=== PATIENT | male | born 1945 | race Two or more races ===

== ENCOUNTER 2023-06-17 22:42 | Inpatient (IN) | payer MEDICARE, OTHER ==
[~2023-06-17] VITALS: Ht 165.1 cm; Wt 73.5 kg
[2023-06-18 00:19] LABS: BASOPHILS % (AUTO) 0.4 % (0.0-2.0); EOSINOPHILS # (AUTO) 0.2 K/uL (0.0-0.7); HEMATOCRIT 45 % (39-51); HEMOGLOBIN 14.9 g/dL (13.5-17.5); LYMPHOCYTES # (AUTO) 2.1 K/uL (0.8-4.8); LYMPHOCYTES % (AUTO) 24.9 % (20.0-44.0); MEAN CORPUSCULAR HEMOGLOBIN 32 PG (26.0-33.0); MEAN CORPUSCULAR HGB CONC 33 g/dl (31.0-36.0); MEAN CORPUSCULAR VOLUME 95 fL (80-96); MONOCYTES # (AUTO) 0.8 K/uL (0.1-1.30); MONOCYTES % (AUTO) 9.8 % (2.0-12.0); NEUTROPHILS # (AUTO) 5.1 K/uL (1.8-8.9); NEUTROPHILS % (AUTO) 61.9 % (43.0-81.0); PLATELET COUNT (AUTO) 191 K/uL (150-450); RED BLOOD CELL COUNT(AUTO) 4.74 MIL/uL (4.5-6.0); RED CELL DISTRIBUTION WIDTH 13.8 % (11.5-15.0); WHITE BLOOD COUNT (AUTO) 8.3 K/uL (4.3-11.0)
[2023-06-18 00:32] LABS: ALANINE AMINOTRANSFERASE 21 U/L (12-78); ALBUMIN 3.8 g/dL (3.4-5.0); ALKALINE PHOSPHATASE 79 U/L (46-116); ASPARTATE AMINOTRANSFERASE 23 U/L (15-37); BILIRUBIN,DIRECT 0.1 mg/dL (0.0-0.2); BILIRUBIN,TOTAL 0.3 mg/dL (0.2-1.0); CALCIUM, SERUM 9.6 mg/dL (8.5-10.1); CARBON DIOXIDE 26 mmol/L (21-32); CHLORIDE 104 mmol/L (98-107); CREATININE 1.2 mg/dL (0.6-1.3); GLUCOSE 126 mg/dL (74-106); POTASSIUM 4.2 mmol/L (3.5-5.1); SODIUM SERUM 139 mmol/L (136-145); TOTAL PROTEIN, SERUM 7.2 g/dL (6.4-8.2); UREA NITROGEN, BLOOD 27 mg/dL (7-18)
[2023-06-18 00:35] LABS: ACETAMINOPHEN <10 ug/ml (10-30); ALCOHOL, BLOOD < 3 mg/dL (0-10); SALICYLATE 2.7 mg/dL (2.8-20.0)
[2023-06-18 01:17] LABS: APPEARANCE,URINE CLEAR (CLEAR); BILIRUBIN,URINE NEGATIVE (NEGATIVE); BLOOD, URINE NEGATIVE Ery/uL (NEGATIVE); COLOR,URINE YELLOW (YELLOW); KETONES,URINE NEGATIVE (NEGATIVE); LEUKOCYTE ESTERASE ,URINE NEGATIVE (NEGATIVE); NITRITE, URINE NEGATIVE (NEGATIVE); PROTEIN,URINE 1+ mg/dl (NEGATIVE); UGLUCOSE 3+ mg/dL (NEGATIVE); UROBILINOGEN,URINE 0.2 EU/dL (0.2)
[2023-06-18 01:26] LABS: AMPHETAMINE, URINE NEGATIVE (NEGATIVE); BARBITURATE, URINE NEGATIVE (NEGATIVE); BENZODIAZEPINE, URINE NEGATIVE (NEGATIVE); CANNABINOID, URINE NEGATIVE (NEGATIVE); COCCAINE, URINE NEGATIVE (NEGATIVE); OPIATE, URINE NEGATIVE (NEGATIVE); PHENCYCLIDINE SCREEN,URINE NEGATIVE (NEGATIVE)
[2023-06-18] MEDS ORDERED: ACETAMINOPHEN 325 MG TABLET PO PRN ×2 (04:30→14:30)
[2023-06-18] MEDS ORDERED: MAGNESIUM HYDROXIDE 30 ML UDC PO PRN (04:30)
[2023-06-18] MEDS ORDERED: LORAZEPAM 0.5 MG TABLET PO PRN ×2 (04:30→10:30)
[2023-06-18] MEDS ORDERED: ZOLPIDEM TARTRATE 5 MG TABLET PO PRN (04:30)
[2023-06-18] MEDS ORDERED: MAG HYDROX/AL HYDROX/SIMETH 30 ML UDC PO PRN (04:30)
[2023-06-18] MEDS ORDERED: ARIP2TAB3 PO (04:46)
[2023-06-18] MEDS ORDERED: AMLO-213 PO (04:47)
[2023-06-18] MEDS ORDERED: ATOR20TA PO (04:48)
[2023-06-18] MEDS ORDERED: B CO1TAB6 PO (04:49)
[2023-06-18] MEDS ORDERED: CHOL400T11 PO (04:52)
[2023-06-18] MEDS ORDERED: UBID100C13 PO (04:53)
[2023-06-18] MEDS ORDERED: CARV6.252 PO (04:56)
[2023-06-18] MEDS ORDERED: APIX5TAB PO (04:57)
[2023-06-18] MEDS ORDERED: DAPA10TA PO (04:58)
[2023-06-18] MEDS ORDERED: INSU100V28 SQ (04:59)
[2023-06-18] MEDS ORDERED: BLOOD SUGAR DIAGNOSTIC 1 EACH STRIP IN ONE (05:00)
[2023-06-18] MEDS ORDERED: INSU100I26 SQ (05:01)
[2023-06-18] MEDS ORDERED: FURO-145 PO (05:02)
[2023-06-18] MEDS ORDERED: ENTE0.5T11 PO (05:03)
[2023-06-18] MEDS ORDERED: MELA3TAB41 PO (05:09)
[2023-06-18] MEDS ORDERED: METF-440 PO (05:10)
[2023-06-18] MEDS ORDERED: POTA-10 PO (05:12)
[2023-06-18 05:14] VITALS: BP 119/69; TEMP 98; O2SAT 98
[2023-06-18] MEDS ORDERED: TRAZ-252 PO (05:14)
[2023-06-18] MEDS ORDERED: Z GUARD REMEDY 4 OZ OINT TP PRN (06:00)
[2023-06-18] MEDS ORDERED: DEXTROSE 50%-WATER 50 ML DISP.SYRIN IV PRN ×2 (06:00→14:30)
[2023-06-18] MEDS ORDERED: PETR113O TP (07:38)
[2023-06-18] MEDS ORDERED: ACET-868 PO (07:38)
[2023-06-18] MEDS ORDERED: CHOL100043 PO (07:38)
[2023-06-18] MEDS: BLOOD SUGAR DIAGNOSTIC 1 EACH STRIP IN SCH ×4 (07:43→21:53)
[2023-06-18 08:00] VITALS: BP 137/67; TEMP 97.9; O2SAT 99
[2023-06-18] MEDS: Z GUARD REMEDY 4 OZ OINT TP SCH (10:05)
[2023-06-18] MEDS ORDERED: INSULIN REGULAR, HUMAN 100 UNIT/ML 3 ML VIAL SQ PRN (14:30)
[2023-06-18 16:00] VITALS: BP 147/69; TEMP 98.2; O2SAT 98
[2023-06-18] MEDS: METFORMIN 500 MG TABLET PO SCH (16:19)
[2023-06-18] MEDS: APIXABAN 5 MG TABLET PO SCH (16:19)
[2023-06-18] MEDS: CARVEDILOL 6.25 MG TABLET PO SCH (16:20)
[2023-06-18] MEDS ORDERED: INSULIN REGULAR, HUMAN 100 UNIT/ML 3 ML VIAL SQ SCH (17:30)
[2023-06-18 20:00] VITALS: BP 130/70; TEMP 98.2; O2SAT 98
[2023-06-18] MEDS: ATORVASTATIN 10 MG TABLET PO SCH (21:23)
[2023-06-18] MEDS: AMLODIPINE BESYLATE 10 MG TABLET PO SCH (21:24)
[2023-06-18] MEDS: QUETIAPINE FUMARATE 25 MG TABLET PO SCH (21:25)
[2023-06-18] MEDS: INSULIN GLARGINE, 100 UNIT/ML CARTRIDGE SQ SCH (21:56)
[2023-06-18 22:53] VITALS: BP 130/70; TEMP 98.2
[2023-06-19 06:45] LABS: BASOPHILS % (AUTO) 0.4 % (0.0-2.0); EOSINOPHILS # (AUTO) 0.2 K/uL (0.0-0.7); EOSINOPHILS % (AUTO) 3.2 % (0.0-6.0); HEMATOCRIT 44 % (39-51); HEMOGLOBIN 14.8 g/dL (13.5-17.5); LYMPHOCYTES % (AUTO) 26.7 % (20.0-44.0); MEAN CORPUSCULAR HEMOGLOBIN 32 PG (26.0-33.0); MEAN CORPUSCULAR HGB CONC 33 g/dl (31.0-36.0); MEAN CORPUSCULAR VOLUME 94 fL (80-96); MONOCYTES # (AUTO) 0.7 K/uL (0.1-1.30); MONOCYTES % (AUTO) 9.9 % (2.0-12.0); NEUTROPHILS # (AUTO) 4.5 K/uL (1.8-8.9); NEUTROPHILS % (AUTO) 59.8 % (43.0-81.0); PLATELET COUNT (AUTO) 202 K/uL (150-450); RED CELL DISTRIBUTION WIDTH 14.2 % (11.5-15.0); WHITE BLOOD COUNT (AUTO) 7.5 K/uL (4.3-11.0)
[2023-06-19] MEDS: BLOOD SUGAR DIAGNOSTIC 1 EACH STRIP IN SCH ×4 (06:57→21:21)
[2023-06-19 07:24] LABS: CALCIUM, SERUM 9.2 mg/dL (8.5-10.1); POTASSIUM 4.2 mmol/L (3.5-5.1)
[2023-06-19 08:00] VITALS: BP 126/56; TEMP 97.7; O2SAT 99
[2023-06-19] MEDS: METFORMIN 500 MG TABLET PO SCH ×2 (08:17→16:05)
[2023-06-19] MEDS: CARVEDILOL 6.25 MG TABLET PO SCH ×2 (08:17→16:07)
[2023-06-19] MEDS: APIXABAN 5 MG TABLET PO SCH ×2 (08:18→16:06)
[2023-06-19] MEDS: DAPAGLIFLOZIN PROPANEDIOL 5 MG TABLET PO SCH (08:19)
[2023-06-19] MEDS: Z GUARD REMEDY 4 OZ OINT TP SCH (08:19)
[2023-06-19] MEDS: FUROSEMIDE 20 MG TABLET PO SCH (08:22)
[2023-06-19] MEDS: ESCITALOPRAM OXALATE (10 MG) 10 MG TABLET PO SCH (08:22)
[2023-06-19] MEDS: VITAMIN B COMP W-C 1 TAB TABLET PO SCH (08:22)
[2023-06-19 16:03] VITALS: BP 123/69; TEMP 97.6; O2SAT 100
[2023-06-19] MEDS: QUETIAPINE FUMARATE 25 MG TABLET PO SCH (21:20)
[2023-06-19] MEDS: ATORVASTATIN 10 MG TABLET PO SCH (21:21)
[2023-06-19] MEDS: AMLODIPINE BESYLATE 10 MG TABLET PO SCH (21:21)
[2023-06-19] MEDS: INSULIN GLARGINE, 100 UNIT/ML CARTRIDGE SQ SCH (21:25)
[2023-06-20] MEDS: BLOOD SUGAR DIAGNOSTIC 1 EACH STRIP IN SCH ×4 (08:57→21:45)
[2023-06-20] MEDS: Z GUARD REMEDY 4 OZ OINT TP SCH (08:57)
[2023-06-20] MEDS: CARVEDILOL 6.25 MG TABLET PO SCH ×2 (08:58→16:33)
[2023-06-20] MEDS: ESCITALOPRAM OXALATE (10 MG) 10 MG TABLET PO SCH (09:01)
[2023-06-20] MEDS: VITAMIN B COMP W-C 1 TAB TABLET PO SCH (09:01)
[2023-06-20] MEDS: METFORMIN 500 MG TABLET PO SCH ×2 (09:01→16:33)
[2023-06-20] MEDS: FUROSEMIDE 20 MG TABLET PO SCH (09:02)
[2023-06-20] MEDS: DAPAGLIFLOZIN PROPANEDIOL 5 MG TABLET PO SCH (09:03)
[2023-06-20] MEDS: APIXABAN 5 MG TABLET PO SCH ×2 (09:03→16:33)
[2023-06-20 15:55] VITALS: BP 142/69; TEMP 98.2; O2SAT 98
[2023-06-20 20:00] VITALS: BP 135/84; TEMP 97.3
[2023-06-20] MEDS: QUETIAPINE FUMARATE 25 MG TABLET PO SCH (21:39)
[2023-06-20] MEDS: ATORVASTATIN 10 MG TABLET PO SCH (21:39)
[2023-06-20] MEDS: AMLODIPINE BESYLATE 10 MG TABLET PO SCH (21:47)
[2023-06-20] MEDS: INSULIN GLARGINE, 100 UNIT/ML CARTRIDGE SQ SCH (21:53)
[2023-06-21] MEDS: BLOOD SUGAR DIAGNOSTIC 1 EACH STRIP IN SCH (07:07)
[2023-06-21 08:00] VITALS: BP 153/68; TEMP 97.7; O2SAT 96
[2023-06-21 08:06] VITALS: BP 153/68; TEMP 97.7
[2023-06-21] MEDS: ESCITALOPRAM OXALATE (10 MG) 10 MG TABLET PO SCH (08:30)
[2023-06-21] MEDS: Z GUARD REMEDY 4 OZ OINT TP SCH (08:30)
[2023-06-21] MEDS: METFORMIN 500 MG TABLET PO SCH ×2 (08:30→16:28)
[2023-06-21] MEDS: DAPAGLIFLOZIN PROPANEDIOL 5 MG TABLET PO SCH (08:30)
[2023-06-21] MEDS: VITAMIN B COMP W-C 1 TAB TABLET PO SCH (08:30)
[2023-06-21] MEDS: FUROSEMIDE 20 MG TABLET PO SCH (08:32)
[2023-06-21] MEDS: APIXABAN 5 MG TABLET PO SCH ×2 (08:32→16:28)
[2023-06-21] MEDS: CARVEDILOL 6.25 MG TABLET PO SCH ×2 (08:33→16:47)
[2023-06-21 15:54] VITALS: BP 118/62; TEMP 98.3; O2SAT 97
[2023-06-21 20:00] VITALS: BP 155/81; TEMP 97.9; O2SAT 98
[2023-06-21] MEDS: AMLODIPINE BESYLATE 10 MG TABLET PO SCH (21:28)
[2023-06-21] MEDS: QUETIAPINE FUMARATE 25 MG TABLET PO SCH (21:28)
[2023-06-21] MEDS: ATORVASTATIN 10 MG TABLET PO SCH (21:28)
[2023-06-21] MEDS: INSULIN GLARGINE, 100 UNIT/ML CARTRIDGE SQ SCH (21:31)
[2023-06-22] MEDS ORDERED: DEXTROSE 50%-WATER 50 ML DISP.SYRIN IV PRN (07:00)
[2023-06-22] MEDS ORDERED: BLOOD SUGAR DIAGNOSTIC 1 EACH STRIP IN SCH ×2 (07:00)
[2023-06-22] MEDS ORDERED: INSULIN REGULAR, HUMAN 100 UNIT/ML 3 ML VIAL SQ SCH ×2 (07:00)
[2023-06-22] MEDS: INSULIN REGULAR, HUMAN 100 UNIT/ML 3 ML VIAL SQ SCH (07:30)
[2023-06-22] MEDS: BLOOD SUGAR DIAGNOSTIC 1 EACH STRIP IN SCH (07:34)
[2023-06-22] MEDS: CARVEDILOL 6.25 MG TABLET PO SCH ×2 (08:28→16:46)
[2023-06-22] MEDS: ESCITALOPRAM OXALATE (10 MG) 10 MG TABLET PO SCH (08:28)
[2023-06-22] MEDS: METFORMIN 500 MG TABLET PO SCH ×2 (08:28→16:46)
[2023-06-22] MEDS: VITAMIN B COMP W-C 1 TAB TABLET PO SCH (08:28)
[2023-06-22] MEDS: FUROSEMIDE 20 MG TABLET PO SCH (08:28)
[2023-06-22] MEDS: APIXABAN 5 MG TABLET PO SCH ×2 (08:29→16:49)
[2023-06-22] MEDS: Z GUARD REMEDY 4 OZ OINT TP SCH (08:34)
[2023-06-22] MEDS: DAPAGLIFLOZIN PROPANEDIOL 5 MG TABLET PO SCH (08:34)
[2023-06-22] MEDS ORDERED: DEXTROSE 50%-WATER 50 ML DISP.SYRIN IV SCH (09:00)
[2023-06-22 16:00] VITALS: BP 123/64; TEMP 98.2; O2SAT 99
[2023-06-22 20:25] VITALS: BP 111/56; TEMP 98; O2SAT 96
[2023-06-22] MEDS: ATORVASTATIN 10 MG TABLET PO SCH (21:15)
[2023-06-22] MEDS: QUETIAPINE FUMARATE 25 MG TABLET PO SCH (21:15)
[2023-06-22] MEDS: AMLODIPINE BESYLATE 10 MG TABLET PO SCH (21:16)
[2023-06-22] MEDS: INSULIN GLARGINE, 100 UNIT/ML CARTRIDGE SQ SCH (21:23)
[2023-06-23] MEDS: INSULIN REGULAR, HUMAN 100 UNIT/ML 3 ML VIAL SQ SCH (07:30)
[2023-06-23] MEDS: BLOOD SUGAR DIAGNOSTIC 1 EACH STRIP IN SCH (08:16)
[2023-06-23] MEDS: FUROSEMIDE 20 MG TABLET PO SCH (08:30)
[2023-06-23] MEDS: METFORMIN 500 MG TABLET PO SCH ×2 (08:31→16:59)
[2023-06-23] MEDS: APIXABAN 5 MG TABLET PO SCH ×2 (08:31→17:00)
[2023-06-23] MEDS: ESCITALOPRAM OXALATE (10 MG) 10 MG TABLET PO SCH (08:31)
[2023-06-23] MEDS: CARVEDILOL 6.25 MG TABLET PO SCH ×2 (08:31→17:01)
[2023-06-23] MEDS: Z GUARD REMEDY 4 OZ OINT TP SCH (08:32)
[2023-06-23] MEDS: VITAMIN B COMP W-C 1 TAB TABLET PO SCH (08:32)
[2023-06-23] MEDS: DAPAGLIFLOZIN PROPANEDIOL 5 MG TABLET PO SCH (09:00)
[2023-06-23 09:07] VITALS: BP 121/60; TEMP 98; O2SAT 94
[2023-06-23 15:22] VITALS: BP 139/64; TEMP 98.3; O2SAT 97
[2023-06-23 19:54] VITALS: BP 130/60; TEMP 98.1; O2SAT 98
[2023-06-23] MEDS: QUETIAPINE FUMARATE 25 MG TABLET PO SCH (21:58)
[2023-06-23] MEDS: AMLODIPINE BESYLATE 10 MG TABLET PO SCH (21:58)
[2023-06-23] MEDS: ATORVASTATIN 10 MG TABLET PO SCH (21:58)
[2023-06-23] MEDS: INSULIN GLARGINE, 100 UNIT/ML CARTRIDGE SQ SCH (22:11)
[2023-06-24] MEDS: INSULIN REGULAR, HUMAN 100 UNIT/ML 3 ML VIAL SQ SCH (07:30)
[2023-06-24] MEDS: BLOOD SUGAR DIAGNOSTIC 1 EACH STRIP IN SCH (07:40)
[2023-06-24 08:00] VITALS: BP 131/65; TEMP 97.5; O2SAT 98
[2023-06-24] MEDS: ESCITALOPRAM OXALATE (10 MG) 10 MG TABLET PO SCH (08:14)
[2023-06-24] MEDS: METFORMIN 500 MG TABLET PO SCH ×2 (08:14→17:32)
[2023-06-24] MEDS: APIXABAN 5 MG TABLET PO SCH ×2 (08:14→17:33)
[2023-06-24] MEDS: VITAMIN B COMP W-C 1 TAB TABLET PO SCH (08:14)
[2023-06-24] MEDS: FUROSEMIDE 20 MG TABLET PO SCH (08:14)
[2023-06-24] MEDS: CARVEDILOL 6.25 MG TABLET PO SCH ×2 (08:15→17:33)
[2023-06-24] MEDS: DAPAGLIFLOZIN PROPANEDIOL 5 MG TABLET PO SCH (08:16)
[2023-06-24] MEDS: Z GUARD REMEDY 4 OZ OINT TP SCH (08:20)
[2023-06-24 16:00] VITALS: BP 148/68; TEMP 98.1; O2SAT 98
[2023-06-24 20:35] VITALS: BP 143/72; TEMP 97.7; O2SAT 96
[2023-06-24] MEDS: ATORVASTATIN 10 MG TABLET PO SCH (21:10)
[2023-06-24] MEDS: QUETIAPINE FUMARATE 25 MG TABLET PO SCH (21:11)
[2023-06-24] MEDS: INSULIN GLARGINE, 100 UNIT/ML CARTRIDGE SQ SCH (22:00)
[2023-06-24] MEDS: AMLODIPINE BESYLATE 10 MG TABLET PO SCH (22:32)
[2023-06-25] MEDS: INSULIN REGULAR, HUMAN 100 UNIT/ML 3 ML VIAL SQ SCH (07:30)
[2023-06-25] MEDS: BLOOD SUGAR DIAGNOSTIC 1 EACH STRIP IN SCH (07:40)
[2023-06-25 08:00] VITALS: BP 119/69; TEMP 98.4; O2SAT 95
[2023-06-25] MEDS: CARVEDILOL 6.25 MG TABLET PO SCH ×2 (08:40→17:08)
[2023-06-25] MEDS: APIXABAN 5 MG TABLET PO SCH ×2 (08:41→17:07)
[2023-06-25] MEDS: ESCITALOPRAM OXALATE (10 MG) 10 MG TABLET PO SCH (08:41)
[2023-06-25] MEDS: FUROSEMIDE 20 MG TABLET PO SCH (08:41)
[2023-06-25] MEDS: VITAMIN B COMP W-C 1 TAB TABLET PO SCH (08:41)
[2023-06-25] MEDS: METFORMIN 500 MG TABLET PO SCH ×2 (08:41→17:07)
[2023-06-25] MEDS: DAPAGLIFLOZIN PROPANEDIOL 5 MG TABLET PO SCH (08:42)
[2023-06-25] MEDS: Z GUARD REMEDY 4 OZ OINT TP SCH (08:54)
[2023-06-25 16:00] VITALS: BP 134/64; TEMP 98; O2SAT 96
[2023-06-25 20:00] VITALS: BP 136/72; TEMP 98.1; O2SAT 96
[2023-06-25] MEDS: QUETIAPINE FUMARATE 25 MG TABLET PO SCH (21:25)
[2023-06-25] MEDS: ATORVASTATIN 10 MG TABLET PO SCH (21:25)
[2023-06-25] MEDS: AMLODIPINE BESYLATE 10 MG TABLET PO SCH (21:26)
[2023-06-25] MEDS: INSULIN GLARGINE, 100 UNIT/ML CARTRIDGE SQ SCH (22:00)
[2023-06-26] MEDS: BLOOD SUGAR DIAGNOSTIC 1 EACH STRIP IN SCH (06:44)
[2023-06-26] MEDS: INSULIN REGULAR, HUMAN 100 UNIT/ML 3 ML VIAL SQ SCH (07:42)
[2023-06-26 08:00] VITALS: BP 119/64; TEMP 98.5; O2SAT 98
[2023-06-26] MEDS: APIXABAN 5 MG TABLET PO SCH ×2 (08:14→16:31)
[2023-06-26] MEDS: DAPAGLIFLOZIN PROPANEDIOL 5 MG TABLET PO SCH (08:14)
[2023-06-26] MEDS: METFORMIN 500 MG TABLET PO SCH ×2 (08:14→16:31)
[2023-06-26] MEDS: VITAMIN B COMP W-C 1 TAB TABLET PO SCH (08:14)
[2023-06-26] MEDS: CARVEDILOL 6.25 MG TABLET PO SCH ×2 (08:15→16:30)
[2023-06-26] MEDS: FUROSEMIDE 20 MG TABLET PO SCH (08:16)
[2023-06-26] MEDS: ESCITALOPRAM OXALATE (10 MG) 10 MG TABLET PO SCH (08:16)
[2023-06-26] MEDS: Z GUARD REMEDY 4 OZ OINT TP SCH (10:03)
[2023-06-26 16:00] VITALS: BP 126/69; TEMP 97.4; O2SAT 98
[2023-06-26 20:00] VITALS: BP 135/57; TEMP 98.1; O2SAT 100
[2023-06-26] MEDS: ATORVASTATIN 10 MG TABLET PO SCH (21:35)
[2023-06-26] MEDS: QUETIAPINE FUMARATE 25 MG TABLET PO SCH (21:35)
[2023-06-26] MEDS: AMLODIPINE BESYLATE 10 MG TABLET PO SCH (21:36)
[2023-06-26] MEDS: INSULIN GLARGINE, 100 UNIT/ML CARTRIDGE SQ SCH (21:55)
[2023-06-27 08:00] VITALS: BP 127/82; TEMP 97.7; O2SAT 93
[2023-06-27] MEDS: BLOOD SUGAR DIAGNOSTIC 1 EACH STRIP IN SCH (08:04)
[2023-06-27] MEDS: INSULIN REGULAR, HUMAN 100 UNIT/ML 3 ML VIAL SQ SCH (08:07)
[2023-06-27] MEDS: Z GUARD REMEDY 4 OZ OINT TP SCH (08:08)
[2023-06-27] MEDS: DAPAGLIFLOZIN PROPANEDIOL 5 MG TABLET PO SCH (08:09)
[2023-06-27] MEDS: VITAMIN B COMP W-C 1 TAB TABLET PO SCH (08:09)
[2023-06-27] MEDS: APIXABAN 5 MG TABLET PO SCH ×2 (08:10→17:00)
[2023-06-27] MEDS: ESCITALOPRAM OXALATE (10 MG) 10 MG TABLET PO SCH (08:10)
[2023-06-27] MEDS: FUROSEMIDE 20 MG TABLET PO SCH (08:10)
[2023-06-27] MEDS: METFORMIN 500 MG TABLET PO SCH ×2 (08:10→16:59)
[2023-06-27] MEDS: CARVEDILOL 6.25 MG TABLET PO SCH ×2 (08:10→16:58)
[2023-06-27 16:00] VITALS: BP 98/61; TEMP 97.8; O2SAT 97
[2023-06-27 20:48] VITALS: BP 126/70; TEMP 99; O2SAT 96
[2023-06-27] MEDS: ATORVASTATIN 10 MG TABLET PO SCH (22:13)
[2023-06-27] MEDS: QUETIAPINE FUMARATE 25 MG TABLET PO SCH (22:13)
[2023-06-27] MEDS: AMLODIPINE BESYLATE 10 MG TABLET PO SCH (22:14)
[2023-06-27] MEDS: INSULIN GLARGINE, 100 UNIT/ML CARTRIDGE SQ SCH (22:23)
[2023-06-28] MEDS: INSULIN REGULAR, HUMAN 100 UNIT/ML 3 ML VIAL SQ SCH (07:30)
[2023-06-28 08:00] VITALS: BP 120/56; TEMP 98.7; O2SAT 98
[2023-06-28] MEDS: BLOOD SUGAR DIAGNOSTIC 1 EACH STRIP IN SCH (08:00)
[2023-06-28] MEDS: ESCITALOPRAM OXALATE (10 MG) 10 MG TABLET PO SCH (08:53)
[2023-06-28] MEDS: METFORMIN 500 MG TABLET PO SCH ×2 (08:53→17:08)
[2023-06-28] MEDS: FUROSEMIDE 20 MG TABLET PO SCH (08:53)
[2023-06-28] MEDS: CARVEDILOL 6.25 MG TABLET PO SCH ×2 (08:54→17:08)
[2023-06-28] MEDS: VITAMIN B COMP W-C 1 TAB TABLET PO SCH (08:54)
[2023-06-28] MEDS: APIXABAN 5 MG TABLET PO SCH ×2 (08:54→17:09)
[2023-06-28] MEDS: DAPAGLIFLOZIN PROPANEDIOL 5 MG TABLET PO SCH (08:57)
[2023-06-28] MEDS: Z GUARD REMEDY 4 OZ OINT TP SCH (08:57)
[2023-06-28] MEDS: POLYETHYLENE GLYCOL 3350 17 GM POWD.PACK PO SCH (10:30)
[2023-06-28 16:00] VITALS: BP 130/62; TEMP 98.4; O2SAT 97
[2023-06-28 21:05] VITALS: BP 110/60; TEMP 98.7; O2SAT 95
[2023-06-28] MEDS: ATORVASTATIN 10 MG TABLET PO SCH (21:24)
[2023-06-28] MEDS: QUETIAPINE FUMARATE 25 MG TABLET PO SCH (21:25)
[2023-06-28] MEDS: AMLODIPINE BESYLATE 10 MG TABLET PO SCH (21:28)
[2023-06-28] MEDS: INSULIN GLARGINE, 100 UNIT/ML CARTRIDGE SQ SCH (21:41)
[2023-06-29] MEDS: INSULIN REGULAR, HUMAN 100 UNIT/ML 3 ML VIAL SQ SCH (07:30)
[2023-06-29 08:00] VITALS: BP 115/61; TEMP 98; O2SAT 93
[2023-06-29] MEDS: BLOOD SUGAR DIAGNOSTIC 1 EACH STRIP IN SCH (08:24)
[2023-06-29] MEDS: CARVEDILOL 6.25 MG TABLET PO SCH ×2 (09:00→17:05)
[2023-06-29] MEDS: METFORMIN 500 MG TABLET PO SCH ×2 (09:37→17:04)
[2023-06-29] MEDS: ESCITALOPRAM OXALATE (10 MG) 10 MG TABLET PO SCH (09:38)
[2023-06-29] MEDS: VITAMIN B COMP W-C 1 TAB TABLET PO SCH (09:38)
[2023-06-29] MEDS: POLYETHYLENE GLYCOL 3350 17 GM POWD.PACK PO SCH (09:38)
[2023-06-29] MEDS: FUROSEMIDE 20 MG TABLET PO SCH (09:38)
[2023-06-29] MEDS: Z GUARD REMEDY 4 OZ OINT TP SCH (09:39)
[2023-06-29] MEDS: DAPAGLIFLOZIN PROPANEDIOL 5 MG TABLET PO SCH (09:42)
[2023-06-29] MEDS: APIXABAN 5 MG TABLET PO SCH ×2 (09:42→17:07)
[2023-06-29 16:00] VITALS: BP 136/79; TEMP 98.6; O2SAT 95
[2023-06-29 20:22] VITALS: BP 159/75; TEMP 98.2; O2SAT 96
[2023-06-29] MEDS: QUETIAPINE FUMARATE 25 MG TABLET PO SCH (22:15)
[2023-06-29] MEDS: ATORVASTATIN 10 MG TABLET PO SCH (22:15)
[2023-06-29] MEDS: AMLODIPINE BESYLATE 10 MG TABLET PO SCH (22:15)
[2023-06-29] MEDS: INSULIN GLARGINE, 100 UNIT/ML CARTRIDGE SQ SCH (22:28)
[2023-06-30] MEDS: BLOOD SUGAR DIAGNOSTIC 1 EACH STRIP IN SCH (07:25)
[2023-06-30] MEDS: INSULIN REGULAR, HUMAN 100 UNIT/ML 3 ML VIAL SQ SCH (07:26)
[2023-06-30 08:00] VITALS: BP 134/64; TEMP 97.8; O2SAT 97
[2023-06-30] MEDS: METFORMIN 500 MG TABLET PO SCH (08:31)
[2023-06-30 08:32] VITALS: BP 134/64
[2023-06-30] MEDS: CARVEDILOL 6.25 MG TABLET PO SCH (08:32)
[2023-06-30] MEDS: VITAMIN B COMP W-C 1 TAB TABLET PO SCH (08:32)
[2023-06-30] MEDS: ESCITALOPRAM OXALATE (10 MG) 10 MG TABLET PO SCH (08:32)
[2023-06-30] MEDS: FUROSEMIDE 20 MG TABLET PO SCH (08:32)
[2023-06-30] MEDS: POLYETHYLENE GLYCOL 3350 17 GM POWD.PACK PO SCH (08:32)
[2023-06-30] MEDS: APIXABAN 5 MG TABLET PO SCH (08:34)
[2023-06-30] MEDS: DAPAGLIFLOZIN PROPANEDIOL 5 MG TABLET PO SCH (08:34)
[2023-06-30] MEDS: Z GUARD REMEDY 4 OZ OINT TP SCH (08:35)
== END 2023-06-30 14:30 | DRG 885 ==
LOC: ER 22:44 → GPS 06-18 03:32
PROVIDERS: ADMIT Psychiatry & Neurology Psychiatry; ATTEND Internal Medicine
DX: F29 Unspecified psychosis not due to a substance or known physiological condition (principal); N18.9 Chronic kidney disease, unspecified; D68.69 Other thrombophilia; I48.20 Chronic atrial fibrillation, unspecified; F03.918 Unspecified dementia, unspecified severity, with other behavioral disturbance; F03.93 Unspecified dementia, unspecified severity, with mood disturbance; K74.60 Unspecified cirrhosis of liver; K76.0 Fatty (change of) liver, not elsewhere classified; E11.22 Type 2 diabetes mellitus with diabetic chronic kidney disease; Z87.820 Personal history of traumatic brain injury; Z20.822 Contact with and (suspected) exposure to COVID-19; Z59.00 Homelessness unspecified; F25.0 Schizoaffective disorder, bipolar type; Z89.422 Acquired absence of other left toe(s); Z89.421 Acquired absence of other right toe(s); F32.9 Major depressive disorder, single episode, unspecified; Z91.199 Patient's noncompliance with other medical treatment and regimen due to unspecified reason; E11.9 Type 2 diabetes mellitus without complications; I12.9 Hypertensive chronic kidney disease with stage 1 through stage 4 chronic kidney disease, or unspecified chronic kidney disease
CPT/HCPCS: 36415; 74018; 80048-TC; 80061-TC; 80076-TC; 82962-TC; 85025-TC; 87081-TC; 97112-TC; 97116-TC; 97530-TC; C9803; G0480; J1815